=== PATIENT | female | born 1995 | race Caucasian/White ===

== ENCOUNTER 2017-04-07 11:39 | Emergency (ER) | payer OTHER ==
[~2017-04-07] VITALS: Ht 162.6 cm; Wt 68.0 kg
[~2017-04-07 11:39] MED LIST: TRAM-21 PO
[2017-04-07] MEDS ORDERED: SERT25TA5 (11:58)
[2017-04-07] MEDS ORDERED: NORG1TAB33 (11:58)
--- OUTSIDE RECORDS SUMMARY | 2017-04-07 12:07 | XMS REPORT | Continuity of Care Document ---
Demographics Preferred Language Unknown Marital Status Unknown Jew Affiliation Unknown Race Unknown Ethnic Group Unknown Author Author Formerly [facility] Address Unknown Phone Unavailable Allergies Medications Problems Procedures Results Encounters ACCT No. Visit Date/Time Discharge Status Pt. Type Provider Facility Loc./Unit Complaint [id number] 12/16/2012 10:21:28 RECURRING
[2017-04-07 12:26] VITALS: BP 136/79
--- NOTE | 2017-04-07 12:27 | ED Psychosocial ---
General Chief Complaint: General Problems/Pain Stated Complaint: SOB/PALPITATIONS/BURNING GASTRIC PAIN Nursing Triage Note: AMB TO ED REPORTS SINCE WEDNESDAY HAS FELT SOA. ON WEDNESDAY WAS HAVING NUMBNESS IN ARMS AND LEGS WAS HYPERVENTLATING. HAD NEG WORK UP. WAS GIVEN XANAX THAT MADE HER FEEL BETTR SAW DR HANKINS YESTERDAY STARTED ON SERTRALINE 25MG DAILY CALLED DR HANKINS TODAY AND SERTRALINE INCREASED TO BID. Source: patient, family (father) Exam Limitations: no limitations History of Present Illness Time seen by provider: 12:26 Initial Comments 21-year-old female patient presents to the emergency department with complaints of epigastric pain/burning and anxiety. Patient states Wednesday she began feeling short of breath and having numbness of the hands/feet/perioral region. Was seen on 04/05/17 at [facility] emergency Department with a negative workup. Patient was seen by Dr. Hankins yesterday and started on sertraline 25 mg daily. Contacted his office today with sertraline increased to twice daily. Patient states she started a new job one month ago. The last couple weeks she has had epigastric pain and burning as well as reflux type symptoms. Worse with spicy foods. Patient states symptoms only began as epigastric pain and burning followed by hyperventilating and shortness of air and then perioral/hand/foot numbness and tingling. Timing/Duration: intermittent Allergies and Home Medications Allergies Coded Allergies: No Known Drug Allergies (Unverified , 04/07/17) Home Medications Alprazolam 0.25 Mg Tablet, 0.25 MG PO Q6H PRN for ANXIETY, #10 Ref 0 Prescribed by: GREGORIA HUNTER on 04/07/17 1346 Famotidine 20 Mg Tablet, 20 MG PO BID PRN for NAUSEA/VOMITING-1ST LINE, #30 Ref 0 Prescribed by: GREGORIA HUNTER on 04/07/17 1346 Norgestrel-Ethinyl Estradiol 1 Each Tablet, #28 (Reported) Omeprazole 40 Mg Capsule.dr, 40 MG PO DAILY, #30 Ref 0 Prescribed by: GREGORIA HUNTER on 04/07/17 1346 Sertraline HCl 25 Mg Tablet, #30 (Reported) Sucralfate 1 Gm/10 Ml Oral.susp, 1 GM PO ACHS, #560 Ref 0 Prescribed by: GREGORIA HUNTER on 04/07/17 2918 Constitutional: No chills, No fever, No malaise EENTM: other (perioral tingling during episodes), No ear pain, No mouth pain, No nose congestion, No nose pain, No throat pain (perioral tingling during episodes), No vision loss Respiratory: see HPI, No cough, No dyspnea on exertion, No phlegm, short of breath, No stridor, No wheezing Cardiovascular: No chest pain, No palpitations, No syncope Gastrointestinal: abdominal pain (epigastric abdominal pain), No constipation, No diarrhea, No dysphagia, No hematemesis, heartburn, loss of appetite, No nausea, No vomiting Genitourinary: no symptoms reported Musculoskeletal: no symptoms reported Skin: no symptoms reported Psychiatric/Neurological: See HPI, Anxiety, Denies Depressed, Denies Emotional Problems, Denies Headache, Numbness, Denies Seizure, Tingling, Denies Weakness All Other Systems Reviewed Negative Unless Noted: Yes (Negative excepted noted.) Past Ofcpvdr-Ggxpij-Lkenls Hx Patient Social History Alcohol Use: Denies Use Recreational Drug Use: No Smoking Status: Never a Smoker Recent Foreign Travel: No Contact w/Someone Who Travel: No Recent Infectious Disease Expo: No Surgeries HX Surgeries: No Respiratory Hx Respiratory Disorders: No Cardiovascular Hx Cardiac Disorders: No Neurological Hx Neurological Disorders: No Genitourinary Hx Genitourinary Disorders: No Gastrointestinal Hx Gastrointestinal Disorders: No Musculoskeletal Hx Musculoskeletal Disorders: No Endocrine Hx Endocrine Disorders: No Psychosocial Hx Psychiatric Problems: Yes Behavioral Health Disorders: Anxiety (recently diagnosed anxiety) Reviewed Nursing Assessment Reviewed/Agree w Nursing PMH: Yes Family Medical History Significant Family History: No Pertinent Family Hx Physical Exam Vital Signs Vital Sign - Last 12Hours 04/07/17 04/07/17 11:39 12:26 Temp 97.9 Pulse 105 Resp 18 B/P (MAP) 136/79 Pulse Ox 100 O2 Delivery Room Air Capillary Refill : Less Than 3 Seconds General Appearance: WD/WN, no apparent distress HEENT: PERRL/EOMI, normal ENT inspection, TMs normal, pharynx normal Neck: non-tender, supple, normal inspection Respiratory: lungs clear, normal breath sounds, no respiratory distress, no accessory muscle use Cardiovascular: normal peripheral pulses, regular rate, rhythm, no edema, no gallop, no murmur Peripheral Pulses: 2+ Dorsalis Pedis (R), 2+ Left Dors-Pedis (L), 2+ Radial Pulses (R), 2+ Radial Pulses (L) Gastrointestinal: normal bowel sounds, soft, no organomegaly, No distended, guarding (epigastric guarding), No rebound, tenderness (epigastric tenderness), No mass Extremities: normal inspection, no pedal edema, normal capillary refill 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, no motor/sensory deficits, alert, oriented x 3, other (anxious) Appearance/Memory: appropriate appearance, appropriate insight, neat, no memory impairment Behavior/Eye Contact: cooperative, good eye contact, normal speech Thoughts/Hallucinations: normal thought pattern, no apparent hallucination Skin: normal color, warm/dry Progress/Results/Core Measures Results/Orders My Orders Orders - GREGORIA HUNTER Lorazepam Injection (Ativan Injection) (04/07/17 12:45) Lidocaine 2% Viscous 15 Ml (Xylocaine Vi (04/07/17 12:45) Famotidine Tablet (Pepcid Tablet) (04/07/17 12:43) Antacid Suspension (Mylanta Suspension (04/07/17 12:45) Medications Given in ED Vital Signs/I&O Vital Sign - Last 12Hours 04/07/17 13:59 Pulse 70 Resp 18 Pulse Ox 98 O2 Delivery Room Air Blood Pressure Mean: 98 Departure Communication Progress Notes [facility] records reviewed. ECG shows sinus tachycardia. Labs show a hemoglobin of 12.6, white blood cells 6.08 platelets 255, troponin less than 0.02, CK 96, potassium 3.3, sodium 138. Chest x-ray shows no acute abnormality. Patient reports feeling much better after medications. Abdomen shows minimal epigastric tenderness. Patient is alert and oriented 3, no acute distress. Plan for discharge to home with follow-up as an outpatient with her primary care physician. Patient to call tomorrow morning for appointment time. All return precautions were discussed with the patient as described in the discharge instructions of this report. Patient voices understanding and agrees with the treatment plan. Impression Impression: Primary Impression: Gastritis Qualified Codes: K29.00 - Acute gastritis without bleeding Additional Impressions: Acid reflux Qualified Codes: K21.9 - Gastro-esophageal reflux disease without esophagitis Panic attack Disposition: HOME, SELF-CARE Condition: Improved Departure-Patient Inst. Decision time for Depature: 13:43 Referrals: DIEGO HANKINS MD (PCP/Family) Primary Care Physician Patient Instructions: Anxiety, Adult (DC), Gastritis (DC), Ulcer and Gastritis Diet Add. Discharge Instructions: All discharge instructions reviewed with patient and/or family. Voiced understanding. Medications as instructed. Tylenol Extra Strength over-the- counter as directed for pain if needed. Drink plenty of fluids. Avoid NSAIDs, aspirin, spicy foods, fatty foods, carbonated beverages, caffeinated beverages, alcohol, smoking, secondhand smoke. Do not eat within 2 hours of lying down. Follow-up with Dr. Hankins as an outpatient for recheck, call for appointment time. Return to the emergency department for worsened symptoms or any other concerns. Scripts Alprazolam (Alprazolam) 0.25 Mg Tablet 0.25 MG PO Q6H Y for ANXIETY, #10 TAB 0 Refills Prov: GREGORIA HUNTER 04/07/17 Sucralfate (Carafate) 1 Gm/10 Ml Oral.susp 1 GM PO ACHS, #560 ML 0 Refills Prov: GREGORIA HUNTER 04/07/17 Omeprazole (Omeprazole) 40 Mg Capsule.dr 40 MG PO DAILY, #30 CAP 0 Refills Prov: GREGORIA HUNTER 04/07/17 Famotidine (Pepcid) 20 Mg Tablet 20 MG PO BID Y for NAUSEA/VOMITING-1ST LINE, #30 TAB 0 Refills Prov: GREGORIA HUNTER 04/07/17 Work/School Note: Work Release Form Date Seen in the Emergency Department: Apr 07, 2017 Return to Work: Apr 08, 2017 Restrictions: No Restrictions GREGORIA HUNTER Apr 07, 2017 12:26
[2017-04-07] MEDS ORDERED: FAMOTIDINE 20 MG (PEPCID) TABLET PO STA (12:43)
[2017-04-07] MEDS ORDERED: ANTACID SUSP 30 ML UDC (MYLANTA) PO ONE (12:45)
[2017-04-07] MEDS ORDERED: LORazepam INJ 2 MG/ML (ATIVAN) VIAL IVP ONE (12:45)
[2017-04-07] MEDS ORDERED: LIDOCAINE 2% VISCOUS 15 ML UDC PO ONE (12:45)
[2017-04-07] MEDS ORDERED: ALPR0.254 PO (13:46)
[2017-04-07] MEDS ORDERED: SUCR1ORA5 PO (13:46)
[2017-04-07] MEDS ORDERED: OMEP40CA36 PO (13:46)
[2017-04-07] MEDS ORDERED: FAMO-119 PO (13:46)
[2017-04-07 13:59] VITALS: BP 136/90
== END 2017-04-07 13:58 | disposition home or self-care (01) ==
LOC: EDUNIT# 11:39 → ER 11:42
DX: K29.00 Acute gastritis without bleeding (principal); F41.0 Panic disorder [episodic paroxysmal anxiety]; K21.9 Gastro-esophageal reflux disease without esophagitis
CPT/HCPCS: 96372; 99281

== ENCOUNTER 2017-04-09 08:13 | Emergency (ER) | payer OTHER ==
[~2017-04-09] VITALS: Ht 162.6 cm; Wt 68.0 kg
[~2017-04-09 08:13] MED LIST changes: +ALPR0.254 PO; +FAMO-119 PO; +NORG1TAB33; +OMEP40CA36 PO; +SERT25TA5; +SUCR1ORA5 PO
--- OUTSIDE RECORDS SUMMARY | 2017-04-09 08:20 | XMS REPORT | Continuity of Care Document ---
Demographics Preferred Language Unknown Marital Status Unknown Amish Affiliation Unknown Race Unknown Ethnic Group Unknown Author Author [facility] Address Unknown Phone Unavailable Allergies Medications Problems Procedures Results Encounters ACCT No. Visit Date/Time Discharge Status Pt. Type Provider Facility Loc./Unit Complaint [id number] 12/16/2012 10:21:28 RECURRING
--- NOTE | 2017-04-09 09:48 | ED General ---
General Chief Complaint: Psych/Social Disorder Stated Complaint: sob//tingling hands Nursing Triage Note: PT STATES SOB, HX OF ANXIETY, HAS POSTERIOR HEAD PRESSURE THAT MOVES TO WHICHEVER SIDE SHE IS LAYING ON. HOT FLASHES THAT FEELS LIKE SHE IS GOING TO PASS OUT. SEEN IN THIS ER ABOUT 2 DAYS AGO, DR. HANKINS ON WEDNESDAY, [facility] WEDNESDAY NIGHT. DENIES ANY TRAUMA TO HEAD. Nursing Sepsis Screen: No Definite Risk Source of Information: Patient Exam Limitations: No Limitations History of Present Illness Time Seen by Provider: 09:44 Initial Comments The patient is a 21-year-old white female who presents with a chief complaint of shortness of breath and numbness and tingling about the lips, hands, feet. She reports that she developed a posterior pressure sensation in her head earlier in the week. At this seems to change to the side when she rolls onto her side while sleeping. There has been no history of trauma no blurring of vision. No loss of vision. She was seen at [facility] emergency room on Wednesday night of this week. She saw her provider Dr. Chago HANKINS on Wednesday. She then was seen in this emergency room on Wednesday. She was ultimately given some Xanax 0.25 mg which seemed to help. She returns today with the observation that she had difficulty denied difficulty sleeping. There was again the pressure in her head and then she began to have the sensation of dry tongue, circumoral numbness, numbness of hands and feet with cramping. This has resolved since she arrived here with coaching relative to stopping her hyperventilation. She cannot report any specific or new emotional stress in her life. Timing/Duration: 4-6 Hours, 1 Week Allergies and Home Medications Allergies Coded Allergies: No Known Drug Allergies (Unverified , 04/07/17) Home Medications Alprazolam 0.25 Mg Tablet, 0.25 MG PO Q6H PRN for ANXIETY, #10 Ref 0 Prescribed by: GREGORIA HUNTER on 04/07/17 1346 Famotidine 20 Mg Tablet, 20 MG PO BID PRN for NAUSEA/VOMITING-1ST LINE, #30 Ref 0 Prescribed by: GREGORIA HUNTER on 04/07/17 1346 Norgestrel-Ethinyl Estradiol 1 Each Tablet, #28 (Reported) Omeprazole 40 Mg Capsule., 40 MG PO DAILY, #30 Ref 0 Prescribed by: GREGORIA HUNTER on 04/07/17 1346 Sertraline HCl 25 Mg Tablet, #30 (Reported) Sucralfate 1 Gm/10 Ml Oral.susp, 1 GM PO ACHS, #560 Ref 0 Prescribed by: GREGORIA HUNTER on 04/07/17 1346 Constitutional: see HPI EENTM: other Respiratory: short of breath, other (hyperventilation) Cardiovascular: no symptoms reported Gastrointestinal: no symptoms reported Genitourinary: no symptoms reported Musculoskeletal: no symptoms reported Skin: no symptoms reported Psychiatric/Neurological: Anxiety, Headache, Numbness, Paresthesia, Tingling Hematologic/Lymphatic: No Symptoms Reported Past Hpjvfnp-Wvktdz-Kwjcok Hx Patient Social History Alcohol Use: Rarely Uses Recreational Drug Use: No Smoking Status: Never a Smoker Recent Foreign Travel: No Contact w/Someone Who Travel: No Recent Infectious Disease Expo: No Recent Hopitalizations: No Seasonal Allergies Seasonal Allergies: Yes Surgeries HX Surgeries: No Respiratory Hx Respiratory Disorders: No Cardiovascular Hx Cardiac Disorders: No Neurological Hx Neurological Disorders: No Genitourinary Hx Genitourinary Disorders: No Gastrointestinal Hx Gastrointestinal Disorders: No Gastrointestinal Disorders: Gastroesophageal Reflux Musculoskeletal Hx Musculoskeletal Disorders: No Endocrine Hx Endocrine Disorders: No Psychosocial Hx Psychiatric Problems: Yes Behavioral Health Disorders: Anxiety Family Medical History Significant Family History: No Pertinent Family Hx Physical Exam Vital Signs Vital Sign - Last 12Hours 04/09/17 08:19 Temp 97.6 Pulse 95 Resp 22 B/P (MAP) 143/96 Pulse Ox 100 O2 Delivery Room Air Capillary Refill : Less Than 3 Seconds General Appearance: Anxious, Mild Distress Eyes: Bilateral Eye Normal Inspection HEENT: Normal ENT Inspection Neck: Normal Inspection Respiratory: Chest Non Tender, Lungs Clear, Normal Breath Sounds, No Accessory Muscle Use, No Respiratory Distress Cardiovascular: Regular Rate, Rhythm, No Edema, No Gallop, No JVD, No Murmur, Normal Peripheral Pulses Gastrointestinal: Normal Bowel Sounds, No Organomegaly, No Pulsatile Mass, Non Tender, Soft Back: Normal Inspection, No CVA Tenderness, No Vertebral Tenderness Neurologic/Psychiatric: Alert, Oriented x3, No Motor/Sensory Deficits, Normal Mood/Affect Skin: Normal Color, Warm/Dry Progress/Results/Core Measures Results/Orders Vital Signs/I&O Vital Sign - Last 12Hours 04/09/17 08:19 Temp 97.6 Pulse 95 Resp 22 B/P (MAP) 143/96 Pulse Ox 100 O2 Delivery Room Air Blood Pressure Mean: 112 Departure Impression Impression: Primary Impression: Anxiety Additional Impression: hyperventilation Disposition: 01 HOME, SELF-CARE Condition: Improved Departure-Patient Inst. Decision time for Depature: 09:51 Referrals: DIEGO HANKINS MD (PCP/Family) Primary Care Physician Add. Discharge Instructions: All discharge instructions reviewed with patient and/or family. Voiced understanding. If numbness and tingling recurs use a paper bag and breathing in and out until symptoms resolved. We will increase your Xanax to 0.5 mg. If symptoms continue see your provider Scripts Alprazolam (Xanax) 0.5 Mg Tablet 0.5 MG PO 3 times a day, #15 TAB Prov: RAJESH GAMINO MD 04/09/17 RAJESH GAMINO MD Apr 09, 2017 09:48
[2017-04-09] MEDS ORDERED: ALPR0.5T PO (09:54)
[2017-04-09 10:10] VITALS: BP 123/75
== END 2017-04-09 10:07 | disposition home or self-care (01) ==
LOC: EDUNIT# 08:13 → ER 08:15
DX: F41.9 Anxiety disorder, unspecified (principal); R06.4 Hyperventilation; K21.9 Gastro-esophageal reflux disease without esophagitis
CPT/HCPCS: 99283

== ENCOUNTER → 2018-10-12 | Outpatient (CLI) | payer OTHER ==
[~2018-10-12] MED LIST changes: +ALPR0.5T PO
--- NOTE | 2018-10-12 12:12 | Diagnostic Imaging Report ---
EXAMINATION: Right shoulder. INDICATION: Soft tissue lump. TECHNIQUE: Three views were obtained. COMPARISON: There are no prior studies available for comparison. FINDINGS: There is no fracture, dislocation, or acute bony abnormality evident. The shoulder joint is fairly well maintained. The distal clavicle does seem somewhat more superior with respect to the acromion. This may be a developmental variant as opposed to a mild acromioclavicular separation. If further evaluation is desired, then a comparison view of the left shoulder would be recommended. The soft tissues are unremarkable. Incidental note is made of a metallic clip overlying the skin in the region of the right clavicle. This is probably related to the patient's bra. IMPRESSION: 1. There is no evidence for an acute bony abnormality. 2. If clinical concern regarding an underlying abnormality persists and further imaging is desired, then MRI would be recommended. Dictated by: Dictated on workstation # [id number]
== END ==
LOC: RAD 11:36
PROVIDERS: ATTEND Family Medicine
DX: R22.31 Localized swelling, mass and lump, right upper limb (principal)
CPT/HCPCS: 73030

== ENCOUNTER → 2018-10-26 | Outpatient (CLI) | payer OTHER ==
--- NOTE | 2018-10-26 17:12 | Diagnostic Imaging Report ---
PROCEDURE: MRI right upper extremity without contrast. TECHNIQUE: Multiplanar, multisequence non contrast-enhanced MRI of the upper extremity was accomplished. INDICATION: Right scapular pain. COMPARISON: None available. FINDINGS: No fracture, stress fracture or focal osseous lesion within the scapula. Proximal humerus is normal in appearance. The glenohumeral and acromioclavicular joints are normal. No rotator cuff muscle atrophy. No definitive rotator cuff tear. Long head of biceps remains intact. No scapulothoracic bursitis is appreciated. IMPRESSION: 1. No scapulothoracic bursitis. 2. No fracture or stress fracture of the scapula. 3. Shoulder girdle musculature is normal. Dictated by: Dictated on workstation # [id number]
== END ==
LOC: RAD 15:40
PROVIDERS: ATTEND Family Medicine
DX: G89.29 Other chronic pain (principal); M25.511 Pain in right shoulder
CPT/HCPCS: 73218

== ENCOUNTER → 2019-07-20 | Outpatient (CLI) | payer OTHER ==
--- NOTE | 2019-07-20 15:45 | Diagnostic Imaging Report ---
INDICATION: dating. FINDINGS: There is an intrauterine gestational sac containing a pole. Gestational age is approximately 9 weeks 2 days. heart rate was recorded at 182 beats per minute. Gestational sac shape is within normal limits. No perigestational sac hemorrhage is detected. The ovaries are unremarkable. No adnexal mass is seen. The cervix is 4.2 cm in length. IMPRESSION: Single live IUP at 9 weeks 2 days gestational age. The estimated date of confinement sonographically is 02/20/2020. Dictated by: Dictated on workstation # [id number]
== END ==
LOC: RAD 14:35
PROVIDERS: ATTEND Family Medicine
DX: Z34.91 Encounter for supervision of normal pregnancy, unspecified, first trimester (principal); Z3A.09 9 weeks gestation of pregnancy
CPT/HCPCS: 76801; 76817

== ENCOUNTER → 2019-10-02 | Outpatient (CLI) | payer OTHER ==
--- NOTE | 2019-10-02 13:03 | Diagnostic Imaging Report ---
INDICATION: survey. TECHNIQUE: Multiple real-time grayscale images were obtained over the gravid uterus. COMPARISON: 07/20/2019. FINDINGS: There is a single live fetus in a variable presentation. heart rate was recorded at 140 bpm. Placenta is anterior. Amniotic fluid volume appears normal. Cervical length is 5.6 cm. survey demonstrates kidneys and bladder to be unremarkable. The brain is unremarkable. There is a four-chamber heart. There is a three-vessel cord with normal insertion. Spine is unremarkable. stomach was not as well-seen today. Biometrical measurements are as follows: Biparietal 4.74 cm, age 20 weeks 3 days. Head circumference 17.53 cm, age 20 weeks 1 days. Abdominal circumference 14.71 cm, age 20 weeks 0 days. Femur length 3.26 cm, age 20 weeks 2 days. Sonographic estimate age: 20 weeks 2 days. Sonographic estimated date of delivery: 02/17/2020. Estimated Weight: 331 gm (+/- 48 gm). LMP percentile: 59%. heart rate: 140 beats per minute. number: 1 of 1. IMPRESSION: Single live IUP 20 weeks 2 days gestational age showing normal interval growth when compared with prior exam from 07/20/2019. The survey is unremarkable although the stomach was not well visualized. Follow-up could be performed. Dictated by: Dictated on workstation # [id number]
== END ==
LOC: RAD 10:22
PROVIDERS: ATTEND Family Medicine
DX: Z34.92 Encounter for supervision of normal pregnancy, unspecified, second trimester (principal); Z3A.20 20 weeks gestation of pregnancy
CPT/HCPCS: 76805

== ENCOUNTER → 2021-06-18 | Outpatient (CLI) | payer BC, OTHER ==
[~2021-06-18] MED LIST changes: +ALPR.25T PO; -ALPR0.254 PO; +IBUP-844 PO; -OMEP40CA36 PO; +OMEP40CA6 PO; +SERT-412; -SERT25TA5
--- NOTE | 2021-06-18 18:10 | Diagnostic Imaging Report ---
PROCEDURE: US OB SINGLE FETUS <14 WKS. TECHNIQUE: Multiple real-time grayscale images were obtained over the gravid uterus in various projections. DATE: June 18, 2021. INDICATION: 25-year-old female, supervision of otherwise normal . COMPARISON: October 02, 2019. FINDINGS: The cervical length measures 4.9 cm. There is an oval intrauterine gestational sac. There is a single living intrauterine with estimated gestational age of 19 weeks and 2 days +/- 1 week based on today's ultrasound crown-rump length measurements. heart rate measures 176 bpm. Yolk sac is unremarkable in appearance. There is no demonstrated perigestational fluid collection. The right ovary measures 2.6 x 2.4 x 1.7 cm in size. The left ovary is not well seen. There is blood flow to the right ovary based on color Doppler and spectral Doppler analysis. There is no free pelvic fluid. IMPRESSION: 1. Single living intrauterine with estimated gestational age of 9 weeks and 2 days +/- 1 week. 2. Unremarkable appearance of the right ovary. 3. The left ovary is not well seen. Dictated by: Dictated on workstation # [id number]
== END ==
LOC: RAD 15:15
PROVIDERS: ATTEND Family Medicine
DX: Z34.91 Encounter for supervision of normal pregnancy, unspecified, first trimester (principal); Z3A.09 9 weeks gestation of pregnancy
CPT/HCPCS: 76801

== ENCOUNTER → 2021-09-02 | Outpatient (CLI) | payer BC ==
--- NOTE | 2021-09-02 14:58 | Diagnostic Imaging Report ---
INDICATION: survey. TECHNIQUE: Multiple Real-time grayscale images were obtained over the gravid uterus. COMPARISON: None. FINDINGS: There is a single live fetus in a cephalic presentation. heart rate was recorded at 160 BPM. Placenta is posterior. Amniotic fluid volume is normal. Cervical length is 5.1 cm. kidneys, bladder, and stomach are unremarkable. Brain is unremarkable. There is a three-vessel cord with normal insertion. spine is unremarkable. The heart anatomy and facial anatomy is somewhat limited due to position. Biometrical measurements are as follows: Biparietal 5.05 cm, age 21 weeks 3 days. Head circumference 18.31 cm, age 20 weeks 5 days. Abdominal circumference 15.36 cm, age 20 weeks 4 days. Femur length 3.48 cm, age 21 weeks 0 days. Sonographic estimate age: 21 weeks 0 days. Sonographic estimated date of delivery: 01/13/2022. Estimated Weight: 376 gm (+/- 55 gm). LMP percentile: 79%. heart rate: 160 beats per minute. number: 1 of 1. IMPRESSION: Single live IUP of 21 weeks 0 days gestational age. The estimated of confinement sonographically is 01/13/2022. The survey is unremarkable although the heart and facial features were somewhat limited due to to position. Dictated by: Dictated on workstation # [id number]
== END ==
LOC: RAD 12:30
PROVIDERS: ATTEND Family Medicine
DX: Z34.92 Encounter for supervision of normal pregnancy, unspecified, second trimester (principal); Z3A.21 21 weeks gestation of pregnancy
CPT/HCPCS: 76805

== ENCOUNTER 2022-01-12 02:25 | Inpatient (IN) | payer BC ==
[2022-01-12] VITALS (94 sets, daily range): BP systolic 90–134; BP diastolic 50–98
[~2022-01-12] VITALS: Ht 162.6 cm; Wt 92.4 kg
[2022-01-12] MEDS ORDERED: MINERAL OIL 30 ML OIL TOP PRN (06:15)
[2022-01-12 06:17] LABS: BILIRUBIN,URINE NEGATIVE (NEGATIVE); CLARITY,URINE CLEAR; COLOR,URINE YELLOW; GLUCOSE, URINE (UA) NEGATIVE (NEGATIVE); KETONES,URINE NEGATIVE (NEGATIVE); LEUKOCYTE ESTERASE ,URINE 1+ (NEGATIVE); NITRITE,URINE NEGATIVE (NEGATIVE); PH,URINE 6.5 (5-9); PROTEIN,URINE NEGATIVE (NEGATIVE)
[2022-01-12 06:26] LABS: BACTERIA,URINE FEW /HPF
[2022-01-12 06:33] LABS: BASOPHILS % (AUTO) 1 % (0-10); EOSINOPHILS # (AUTO) 0.1 10^3/uL (0.0-0.3); EOSINOPHILS % (AUTO) 1 % (0-10); HEMATOCRIT 40 % (35-52); HEMOGLOBIN 13.3 g/dL (11.5-16.0); LYMPHOCYTES # (AUTO) 1.7 10^3/uL (1.0-4.0); LYMPHOCYTES % (AUTO) 21 % (12-44); MEAN CORPUSCULAR HEMOGLOBIN 29 pg (25-34); MEAN CORPUSCULAR HGB CONC 33 g/dL (32-36); MEAN CORPUSCULAR VOLUME 89 fL (80-99); MEAN PLATELET VOLUME 9.4 fL (9.0-12.2); MONOCYTES # (AUTO) 0.4 10^3/uL (0.0-1.0); MONOCYTES % (AUTO) 5 % (0-12); NEUTROPHILS # (AUTO) 5.8 10^3/uL (1.8-7.8); NEUTROPHILS % (AUTO) 73 % (42-75); PLATELET COUNT 245 10^3/uL (130-400)
[2022-01-12] MEDS: D5 LR IV SOLUTION 1,000 ML IV SCH ×2 (06:39→12:00)
--- NOTE | 2022-01-12 06:40 | History & Physical-OB ---
OB - Chief Complaint & HPI Date/Time Date of Admission: Date of Admission: Jan 12, 2022 at 05:58 Date seen by a Provider: Jan 12, 2022 Time Seen by a Provider: 06:35 Chief Complaint/History OB-Reason for Admission/Chief: Induction of Labor Hx : 2 Hx Para: 1 Expected Date of Delivery: Jan 19, 2022 Gestational Age in Weeks: 39 Other reason for admission: desires induction Admission Nurse Assessment Rev: Yes History of Labs GBS negative at 36 weeks. Allergies and Home Medications Allergies Coded Allergies: No Known Drug Allergies (Unverified , 04/07/17) Patient Home Medication List Home Medication List Reviewed: Yes Discontinued Medications ALPRAZolam (Xanax Tablet) 0.25 Mg Tablet, 0.25 MG PO Q6H PRN for ANXIETY Discontinued Reason: No Longer Taking Prescribed by: GREGORIA HUNTER on 04/07/171345 Last Action: Discontinued Alprazolam (Xanax) 0.5 Mg Tablet, 0.5 MG PO 3 times a day Discontinued Reason: No Longer Taking Prescribed by: RAJESH GAMINO on 04/09/17 0954 Last Action: Discontinued Famotidine (Pepcid) 20 Mg Tablet, 20 MG PO BID PRN for NAUSEA/VOMITING-1ST LINE Discontinued Reason: No Longer Taking Prescribed by: GREGORIA HUNTER on 04/07/171345 Last Action: Discontinued Ibuprofen (Ibu) 600 Mg Tablet, 600 MG PO Q6HR Discontinued Reason: No Longer Taking Prescribed by: DIEGO HANKINS on 02/22/20 0723 Last Action: Discontinued Omeprazole (Omeprazole) 40 Mg Capsule.dr, 40 MG PO DAILY Discontinued Reason: No Longer Taking Prescribed by: GREGORIA HUNTER on 04/07/171345 Last Action: Discontinued Sertraline HCl (Sertraline HCl) 25 Mg Tablet, (Reported) Discontinued Reason: No Longer Taking Entered as Reported by: JAIME TAVERAS on 04/07/17 1158 Last Action: Discontinued Sucralfate (Carafate) 1 Gm/10 Ml Oral.susp, 1 GM PO ACHS Discontinued Reason: No Longer Taking Prescribed by: GREGORIA HUNTER on 04/07/171345 Last Action: Discontinued OB - History Hx of Present Care: Yes Ultrasounds: Normal mid trimester US Obstetrical Complications: None Medical Complications: None Patient Past Medical History no chronic medical problems Immunizations Hepatitis A: Yes Hepatitis B: Yes OB - Admission Exam Physical Exam Vitals: Vital Signs 01/12/22 06:16 Temp 36.8 Pulse 112 Resp 18 B/P (MAP) 125/84 (98) Pulse Ox 98 O2 Delivery Room Air HEENT: Moist Membranes Heart: Rhythm Normal Lungs: Clear Abdomen: Gravid Cervical Dilatation: 2cm Effacement: 75% Station: -3 Membranes: Intact Heart Rate: 140's Accelerations: Accelerations Present Short Term Variability: Present Custodial Variability: Average (6-25) Contractions on Admission: >10 Minutes Apart Intensity: Mild Servin Scoring Tool (Modified) Dilation (cm): 1-2cm (1) Effacement (%): 51-79% (2) Descent/Station: -3 (0) Cervix Consistency: Medium(1) Cervix Position: Middle/Mid-Position (1) Add 1 point for: Each previous vaginal delivery (1) Servin Score: 6 Labs Laboratory Tests Test 01/12/22 06:05 01/12/22 06:20 Range/Units Urine Color YELLOW Urine Clarity CLEAR Urine pH 6.5 5-9 Urine Specific Fate 1.020 1.016-1.022 Urine Protein NEGATIVE NEGATIVE Urine Glucose (UA) NEGATIVE NEGATIVE Urine Ketones NEGATIVE NEGATIVE Urine Nitrite NEGATIVE NEGATIVE Urine Bilirubin NEGATIVE NEGATIVE Urine Urobilinogen 0.2 < = 1.0 MG/DL Urine Leukocyte Esterase 1+ H NEGATIVE Urine RBC (Auto) NEGATIVE NEGATIVE Urine RBC NONE /HPF Urine WBC 2-5 /HPF Urine Squamous Epithelial Cells 2-5 /HPF Urine Crystals NONE /LPF Urine Bacteria FEW H /HPF Urine Casts NONE /LPF Urine Mucus NEGATIVE /LPF Urine Culture Indicated YES OB - Assessment/Plan/Diagnosis Assessment Assessment: induction of labor (at term 39weeks) Admission Dx 1. IUP at term 39 weeks. Admission Status: Inpatient Order (span 2 midnights) Reason for Inpatient Admission: L&D Plan Plan: Induction Induction Method: AROM Other Plan -pitocin as necessary -Patient desires epidural DIEGO HANKINS MD Jan 12, 2022 06:40
[2022-01-12] MEDS ORDERED: OXYTOCIN PRE-MIX DRIP 500 ML IV SCH ×2 (06:45→17:00)
[2022-01-12] MEDS ORDERED: fentaNYL 2 mcg/ml BUPIVA 0.125 100 ML ONE (10:20)
[2022-01-12] MEDS ORDERED: LACTATED RINGERS 1,000 ML IV ONE (10:21)
[2022-01-12] MEDS ORDERED: fentaNYL INJ 100 MCG/2 ML AMP ONE (11:02)
[2022-01-12] MEDS ORDERED: BUPIVACAINE 0.25% 10 ML (SENSORCAINE) VIAL ONE (11:02)
[2022-01-12] MEDS ORDERED: LACTATED RINGERS 1,000 ML IV SCH (11:45)
[2022-01-12] MEDS ORDERED: diphenhydrAMINE 50 MG/ML INJ (BENADRYL) IV PRN (11:45)
[2022-01-12] MEDS ORDERED: METOCLOPRAMIDE INJ 10 MG/2 ML (REGLAN) IV PRN (11:45)
[2022-01-12] MEDS ORDERED: ONDANSETRON 4 MG/2 ML (SDV) Z0FRAN IV PRN (11:45)
[2022-01-12] MEDS ORDERED: EPIDURAL (fentaNYL 2 MCG/ML BUPIVA 0.125%)100 ML BAG EPI PRN (11:45)
[2022-01-12] MEDS ORDERED: NALOXONE 0.4 MG/ML 1 ML (NARCAN) VIAL IV PRN ×3 (11:45→17:00)
[2022-01-12] MEDS ORDERED: CATHETER FLUSH 10 ML SYR IV SCH ×2 (14:00→22:00)
[2022-01-12] MEDS ORDERED: LIDOCAINE/EPI 2% 1:200,00 (XYLOCAINE) 10 ML VIAL ONE (16:15)
--- NOTE | 2022-01-12 16:53 | OB Labor & Delivery Record ---
L&D History Date of Service Date of Service: Jan 12, 2022 History Expected Date of Delivery: Jan 19, 2022 Gestational Age in Weeks: 39 Hx : 2 Hx Para: 2 Complications Events: Routine care Operative Indications (Cesarea: N/A-Vaginal Delivery Intrapartal Events: None L&D Stage1 Stage One Onset of Labor - Date: Jan 12, 2022 Onset of Labor - Time: 06:32 Monitors and Tracing Monitor Mode: Internal Heart Rate: 140 Monitor Accelerations: Uniform Monitor Decelerations: None Station: -3 Alf Variability: Average (6-10) Short Term Variability: Present Presentation: Vertex Vital Signs VS - Last 72 Hours, by Label 01/12/22 01/12/22 01/12/22 01/12/22 06:11 06:16 07:04 07:21 Temp 36.8 36.8 Pulse 112 112 88 90 Resp 18 18 B/P (MAP) 125/84 (98) 113/70 (84) 111/77 (88) Pulse Ox 98 98 O2 Delivery Room Air Room Air Room Air Room Air 01/12/22 01/12/22 01/12/22 01/12/22 07:35 07:50 08:05 08:21 Pulse 99 103 78 112 B/P (MAP) 121/75 (90) 113/69 (84) 121/75 (90) 113/79 (90) O2 Delivery Room Air Room Air Room Air Room Air 01/12/22 01/12/22 01/12/22 01/12/22 08:34 08:50 09:05 09:21 Temp 36.5 Pulse 96 106 74 98 Resp 20 B/P (MAP) 109/75 (86) 108/77 (87) 116/70 (85) 107/79 (88) O2 Delivery Room Air Room Air Room Air Room Air 01/12/22 01/12/22 01/12/22 01/12/22 09:35 09:50 10:04 10:20 Pulse 97 93 115 125 B/P (MAP) 109/63 (78) 107/70 (82) 99/62 (74) 94/59 (71) O2 Delivery Room Air Room Air Room Air Room Air 01/12/22 01/12/22 01/12/22 01/12/22 10:35 10:39 10:51 11:04 Temp 36.3 Pulse 83 81 82 87 Resp 18 18 18 B/P (MAP) 111/69 (83) 114/74 (87) 116/75 (89) 118/75 (89) O2 Delivery Room Air Room Air Room Air Room Air 01/12/22 01/12/22 01/12/22 01/12/22 11:11 11:13 11:16 11:19 Pulse 104 85 92 91 Resp 18 20 B/P (MAP) 120/65 (83) 124/70 (88) 107/69 (82) 110/68 (82) Pulse Ox 99 100 99 99 O2 Delivery Room Air Room Air Room Air Room Air 01/12/22 01/12/22 01/12/22 01/12/22 11:22 11:24 11:28 11:32 Pulse 92 104 102 101 Resp 20 B/P (MAP) 111/66 (81) 101/61 (74) 101/59 (73) 98/58 (71) Pulse Ox 100 99 100 99 O2 Delivery Room Air Room Air Room Air Room Air 01/12/22 01/12/22 01/12/22 01/12/22 11:35 11:38 11:41 11:44 Pulse 87 72 77 72 B/P (MAP) 90/50 (63) 108/58 (75) 98/53 (68) 99/60 (73) Pulse Ox 98 97 O2 Delivery Room Air Room Air 01/12/22 01/12/22 01/12/22 01/12/22 11:48 11:51 11:54 11:56 Pulse 73 80 76 90 B/P (MAP) 106/62 (77) 105/65 (78) 107/65 (79) 97/61 (73) Pulse Ox 98 98 98 01/12/22 01/12/22 01/12/22 01/12/22 11:59 12:02 12:05 12:08 Pulse 70 85 100 90 B/P (MAP) 109/70 (83) 99/63 (75) 119/68 (85) 104/78 (87) Pulse Ox 96 01/12/22 01/12/22 01/12/22 01/12/22 12:12 12:15 12:17 12:21 Pulse 86 84 85 73 B/P (MAP) 97/66 (76) 112/67 (82) 121/69 (86) 105/63 (77) 01/12/22 01/12/22 01/12/22 01/12/22 12:23 12:26 12:29 13:03 Pulse 80 85 78 72 B/P (MAP) 106/72 (83) 107/73 (84) 105/72 (83) 106/70 (82) O2 Delivery Room Air 01/12/22 01/12/22 01/12/22 01/12/22 13:18 13:33 13:47 14:03 Pulse 65 66 77 76 B/P (MAP) 109/65 (80) 116/71 (86) 113/68 (83) 106/70 (82) O2 Delivery Room Air Room Air Room Air Room Air 01/12/22 01/12/22 01/12/22 01/12/22 14:07 14:10 14:13 14:16 Temp 36.6 Pulse 75 70 80 85 Resp 18 18 20 18 B/P (MAP) 117/73 (88) 117/73 (88) 108/69 (82) 103/67 (79) O2 Delivery Room Air Room Air Room Air Room Air 01/12/22 01/12/22 01/12/22 01/12/22 14:21 14:24 14:27 14:30 Pulse 81 77 86 71 B/P (MAP) 102/69 (80) 119/72 (88) 108/71 (83) 116/68 (84) O2 Delivery Room Air Room Air Room Air Room Air 01/12/22 01/12/22 01/12/22 01/12/22 14:33 14:36 14:39 14:42 Pulse 68 75 65 67 Resp 20 B/P (MAP) 114/71 (85) 107/70 (82) 120/66 (84) 119/70 (86) O2 Delivery Room Air Room Air Room Air Room Air 01/12/22 01/12/22 01/12/22 01/12/22 14:45 14:48 14:51 14:54 Pulse 75 64 70 70 B/P (MAP) 115/73 (87) 113/68 (83) 109/65 (80) 112/67 (82) O2 Delivery Room Air Room Air Room Air Room Air 01/12/22 01/12/22 01/12/2222 14:57 15:00 15:03 15:05 Pulse 70 71 65 68 B/P (MAP) 114/69 (84) 111/70 (84) 116/68 (84) 116/72 (87) O2 Delivery Room Air Room Air Room Air Room Air 01/12/22 01/12/22 01/12/22 01/12/22 15:08 15:12 15:15 15:30 Pulse 71 102 94 86 Resp 20 B/P (MAP) 134/77 (96) 118/68 (85) 118/76 (90) 114/74 (87) O2 Delivery Room Air Room Air Room Air Room Air 01/12/22 15:43 Pulse 74 B/P (MAP) 113/74 (87) O2 Delivery Room Air Signs of Distress by FHT Signs of Distress no Rupture of Membranes Spontaneous Ruture of Membrane: No Amniotic Membrane Rupture Time: 0632 Amniotic Membrane Fluid Desc.: Clear Induction/Anesthesia Epidural Cath Placement - Time: 1115 L&D Stage2 Stage Two Stage II Date: Jan 12, 2022 Stage II Time: 16:28 Monitors and Tracing Monitor Mode: Internal Heart Rate: 140 Monitor Accelerations: None Monitor Decelerations: Early Alf Variability: Average (6-10) Short Term Variability: Present Position: Left Occiput Anterior Presentation: Vertex Cord Descript/Complications Cord Vessel Description: 3 Vessels Delivery Type Infant Delivery Method: Spontaneous Vaginal Anterior Shoulder: Left Episiotomy/Perineal Laceration Laceraction(s)/Extensions: No Episiotomy Description: Periurethral Extnsion/lac Sutures Used: Vicryl Condition of Delivery 1 minute Comment: 8 5 minute Comment: 9 Condition of Infant Condition of : Living Exam: No Observed Abnormalities Resuscitation Resuscitation: N/A - Spontaneous Resp L&D Stage3 Stage Three Stage III Date: Jan 12, 2022 Stage III Time: 14:33 Pictocin Pitocin Administration mu/min: 4 Pitocin ml/hr: 4 Pitocin Administration Comment: 0739- PITOCIN INCREASED PER PROTOCOL Placenta Delivery Placenta Delivery: Spontaneous Delivery Summary Summary Estimated blood loss (mL): 200 Condition of Delivery Examined: Cervix Examined Post Hemorrhage: No Intervention Required none DIEGO HANKINS MD Jan 12, 2022 16:53
[2022-01-12] MEDS ORDERED: TETANUS,DIPTH,PERTUSS P/F (BOOSTRIX) 0.5 ML VIAL IM ONE (17:00)
[2022-01-12] MEDS ORDERED: MEASLES,MUMPS,RUBELLA 1 EA INJ SQ ONE (17:00)
[2022-01-12] MEDS ORDERED: WITCH HAZEL(TUCKS) 40 EA JAR TOP PRN (17:00)
[2022-01-12] MEDS ORDERED: BENZOCAINE/MENTHOL (DERMOPLAST) 56 ML CAN TP PRN (17:00)
[2022-01-12] MEDS: IBUPROFEN 600 MG (MOTRIN) TAB PO SCH (19:52)
[2022-01-12] MEDS: DOCUSATE SODIUM 100 MG (COLACE) CAP PO SCH (19:52)
[2022-01-12] MEDS: ACETAMINOPHEN 500 MG TAB (TYLENOL) PO SCH (19:52)
[2022-01-13] MEDS: IBUPROFEN 600 MG (MOTRIN) TAB PO SCH ×3 (02:34→15:39)
[2022-01-13] MEDS: ACETAMINOPHEN 500 MG TAB (TYLENOL) PO SCH ×3 (02:35→15:39)
[2022-01-13 04:45] VITALS: BP 114/56
[2022-01-13 05:31] LABS: BASOPHILS % (AUTO) 0 % (0-10); EOSINOPHILS % (AUTO) 0 % (0-10); HEMATOCRIT 36 % (35-52); HEMOGLOBIN 11.6 g/dL (11.5-16.0); LYMPHOCYTES # (AUTO) 1.8 10^3/uL (1.0-4.0); LYMPHOCYTES % (AUTO) 15 % (12-44); MEAN CORPUSCULAR HEMOGLOBIN 29 pg (25-34); MEAN CORPUSCULAR HGB CONC 33 g/dL (32-36); MEAN CORPUSCULAR VOLUME 90 fL (80-99); MEAN PLATELET VOLUME 9.7 fL (9.0-12.2); MONOCYTES # (AUTO) 0.5 10^3/uL (0.0-1.0); MONOCYTES % (AUTO) 5 % (0-12); NEUTROPHILS # (AUTO) 9.1 10^3/uL (1.8-7.8); NEUTROPHILS % (AUTO) 79 % (42-75); PLATELET COUNT 196 10^3/uL (130-400); WHITE BLOOD COUNT 11.5 10^3/uL (4.3-11.0)
--- NOTE | 2022-01-13 06:46 | Discharge Summary ---
Diagnosis/Chief Complaint Date of Admission Jan 12, 2022 at 05:58 Date of Discharge Discharge Date: Jan 13, 2022 Admission Diagnosis Admission Diagnosis 1. IUP at 39 weeks gestation Discharge Diagnosis 1. IUP at 39 weeks gestation Reason Hospital Visit desires induction Discharge Summary-OBS Procedures 1. Epidural per anesthesia 2. 3. Repair of minor periuretral tear Discharge Physical Examination Allergies: Coded Allergies: No Known Drug Allergies (Unverified , 04/07/17) Vitals & I&Os Vital Signs Date Time Temp Pulse Resp B/P (MAP) Pulse Ox O2 Delivery O2 Flow Rate FiO2 01/13/22 04:45 36.7 65 18 114/56 (75) 96 Room Air Hospital Course Was the Problem List Reviewed?: Yes Hg in the am of 01/13 was 11.6 compared to admission of 13.3. Pending Labs Laboratory Tests 01/13/22 05:19: White Blood Count 11.5, Red Blood Count 3.95, Hemoglobin 11.6, Hematocrit 36, Mean Corpuscular Volume 90, Mean Corpuscular Hemoglobin 29, Mean Corpuscular Hemoglobin Concent 33, Red Cell Distribution Width 13.2, Platelet Count 196, Mean Platelet Volume 9.7, Immature Granulocyte % (Auto) 1, Neutrophils (%) (Auto) 79, Lymphocytes (%) (Auto) 15, Monocytes (%) (Auto) 5, Eosinophils (%) (Auto) 0, Basophils (%) (Auto) 0, Neutrophils # (Auto) 9.1, Lymphocytes # (Auto) 1.8, Monocytes # (Auto) 0.5, Eosinophils # (Auto) 0.0, Basophils # (Auto) 0.0, Immature Granulocyte # (Auto) 0.1 Discharge Instructions to patient/family Please see electronic discharge instructions given to patient. Discharge Medications Reviewed and agree with Discharge Medication list on patient's Discharge Instruction sheet DIEGO HANKINS MD Jan 13, 2022 06:46
--- NOTE | 2022-01-13 06:48 | Discharge Inst-Women's Service ---
Discharge Inst-Women's Serv Depart Medication/Instructions New, Converted or Re-Newed RX: Other Instructions may take ibuprofen OTC 200mg 2-3 for cramps every 6hrs Problems Reviewed?: Yes Consults/Follow Up Additional Follow Up: Yes (Dr Hankins in 6 weeks.) Activity Activity: Activity as Tolerated Driving Instructions: No Driving for 1 Week Nothing Inside Vagina: No [place] (for 6 weeks.) Diet Discharge Diet: Regular Diet Return to The Hospital For: as below Symptoms to Report to : Bleeding Excessive, Fever Over 101 Degrees F, Vaginal Discharge Foul For Any Problems or Questions: Contact Your Physician DIEGO HANKINS MD Jan 13, 2022 06:48
[2022-01-13 09:00] VITALS: BP 116/70
[2022-01-13] MEDS: DOCUSATE SODIUM 100 MG (COLACE) CAP PO SCH (09:03)
[2022-01-13] MEDS ORDERED: TETANUS,DIPTH,PERTUSS P/F (BOOSTRIX) 0.5 ML VIAL IM ONE (09:08)
--- NOTE | 2022-01-13 11:43 | Anesthesia-Regional Post-Op ---
Regional Patient Condition Mental Status: Alert, Oriented x3 Circulation: Same as Pre-Op Headache: Absent Sensation: Full Recovery Motor Block: Absent Post Op Complications Complications None Follow Up Care/Instructions Patient Instructions None needed. Anesthesia/Patient Condition Patient is doing well, no complaints, stable vital signs, no apparent adverse anesthesia problems. No complications reported per nursing. GEMA LACKEY CRNA Jan 13, 2022 11:43
[2022-01-13 12:00] VITALS: BP 106/62
[2022-01-13 15:44] VITALS: BP 117/65
== END 2022-01-13 18:15 | disposition home or self-care (01) | DRG 807 ==
LOC: LDRP 05:58
PROVIDERS: ADMIT Family Medicine; ATTEND Family Medicine
PROC: 10E0XZZ Delivery of Products of Conception, External Approach (ICD-10-PCS; principal; 2022-01-12)
PROC: 0W8NXZZ Division of Female Perineum, External Approach (ICD-10-PCS; 2022-01-12)
PROC: 10907ZC Drainage of Amniotic Fluid, Therapeutic from Products of Conception, Via Natural or Artificial Opening (ICD-10-PCS; 2022-01-12)
PROC: 3E033VJ Introduction of Other Hormone into Peripheral Vein, Percutaneous Approach (ICD-10-PCS; 2022-01-12)
DX: O80 Encounter for full-term uncomplicated delivery (principal); Z37.0 Single live birth; Z3A.39 39 weeks gestation of pregnancy
CPT/HCPCS: 36415; 81000; 85025; 86850; 86900; 86901; 87088; 90715